=== PATIENT | male | born 1985 | race Caucasian/White ===

== ENCOUNTER 2020-11-01 12:18 | Emergency (ER) | payer OTHER ==
[2020-11-01] MEDS ORDERED: KETOROLAC 15 MG/ML 1 ML VIAL IVP STA (12:46)
[2020-11-01] MEDS ORDERED: SODIUM CHLORIDE 0.9% 1,000 ML IV ONE (12:46)
--- NOTE | 2020-11-01 13:04 | ED ---
Skin/Abscess/FB HPI - General Chief complaint: Skin/Abscess/Foreign Body Stated complaint: lt eye infection Time Seen by Provider: 11/01/20 12:40 Source: patient, RN notes reviewed Mode of arrival: ambulatory Limitations: no limitations - History of Present Illness Initial comments: 35-year-old male presents with from chief complaint left eye infection, swelling. Patient states he believes he was bit by a spider a few days ago states is increased swelling, pain around his eyes states she has no pain behind her pain with ocular movements. No blurred vision. He states it hurts to have left leg is swollen. Patient denies any fevers chills headache no dizziness no neck pain. Denies any night sweats. - Related Data Previous Rx's Medication Instructions Recorded Amoxicillin/Potassium Clav 1 tab PO Q12HR #20 tab 11/01/20 [Augmentin 875-125 Tablet] Ibuprofen [Motrin] 600 mg PO Q8HR PRN #20 tab 11/01/20 Allergies Allergy/AdvReac Type Severity Reaction Status Date / Time No Known Allergies Allergy Verified 11/01/20 13:36 Review of Systems ROS Statement: Those systems with pertinent positive or pertinent negative responses have been documented in the HPI. ROS Other: All systems not noted in ROS Statement are negative. Past Medical History Past Medical History: No Reported History Additional Past Medical History / Comment(s): hep c History of Any Multi-Drug Resistant Organisms: MRSA Date of last positivie culture/infection: 2011 MDRO Source:: pt reports has had MRSA "in a couple spots" Past Surgical History: Back Surgery Past Psychological History: No Psychological Hx Reported Smoking Status: Current every day smoker Past Alcohol Use History: None Reported Past Drug Use History: None Reported General Exam Limitations: no limitations General appearance: alert, in no apparent distress Head exam: Present: atraumatic, normocephalic, normal inspection Eye exam: Present: PERRL, EOMI, periorbital swelling (Moderate left with pustule noted in the upper eyebrow), periorbital tenderness, other (No erythema the left side, no pain with ocular movement. No entrapment.). Absent: normal appearance, scleral icterus, conjunctival injection ENT exam: Present: normal exam, normal oropharynx, mucous membranes moist Neck exam: Present: normal inspection, full ROM. Absent: tenderness, lymphadenopathy Respiratory exam: Present: normal lung sounds bilaterally. Absent: respiratory distress, wheezes, rales, rhonchi, stridor Cardiovascular Exam: Present: regular rate, normal rhythm, normal heart sounds. Absent: systolic murmur, diastolic murmur, rubs, gallop, clicks GI/Abdominal exam: Present: normal bowel sounds Course Vital Signs 11/01/20 12:30 Temperature 98.2 F Pulse Rate 54 L Respiratory 16 Rate Blood Pressure 154/96 O2 Sat by Pulse 100 Oximetry Medical Decision Making - Medical Decision Making CT shows evidence of preseptal cellulitis. Patient has no drainable abscess. Patient was given dorsi and Braaksma discharged and oral antibiotics with follow-up in 24 hours return parameters were discussed. - Lab Data Result diagrams: 11/01/20 12:54 11/01/20 12:54 Lab Results 11/01/20 11/01/20 11/01/20 Range/Units 12:54 12:54 12:54 WBC 7.3 (3.8-10.6) k/uL RBC 4.52 (4.30-5.90) m/uL Hgb 13.7 (13.0-17.5) gm/dL Hct 42.2 (39.0-53.0) % MCV 93.4 (80.0-100.0) fL MCH 30.4 (25.0-35.0) pg MCHC 32.5 (31.0-37.0) g/dL RDW 13.7 (11.5-15.5) % Plt Count 179 (150-450) k/uL MPV 7.0 Neutrophils % (Manual) 62 % Lymphocytes % (Manual) 21 % Monocytes % (Manual) 16 % Basophils % (Manual) 1 % Neutrophils # (Manual) 4.53 (1.3-7.7) k/uL Lymphocytes # (Manual) 1.53 (1.0-4.8) k/uL Monocytes # (Manual) 1.17 H (0-1.0) k/uL Basophils # (Manual) 0.07 (0-0.2) k/uL Nucleated RBCs 0 (0-0) /100 WBC Manual Slide Review Performed RBC Morphology Normal Sodium 136 L (137-145) mmol/L Potassium 4.4 (3.5-5.1) mmol/L Chloride 100 (98-107) mmol/L Carbon Dioxide 32 H (22-30) mmol/L Anion Gap 4 mmol/L BUN 12 (9-20) mg/dL Creatinine 0.53 L (0.66-1.25) mg/dL Est GFR (CKD-EPI)AfAm >90 (>60 ml/min/1.73 sqM) Est GFR (CKD-EPI)NonAf >90 (>60 ml/min/1.73 sqM) Glucose 115 H (74-99) mg/dL Plasma Lactic Acid Sim 1.2 (0.7-2.0) mmol/L Calcium 8.5 (8.4-10.2) mg/dL Total Bilirubin 0.5 (0.2-1.3) mg/dL AST 166 H (17-59) U/L ALT 252 H (4-49) U/L Alkaline Phosphatase 105 (38-126) U/L Total Protein 7.3 (6.3-8.2) g/dL Albumin 3.9 (3.5-5.0) g/dL Disposition Clinical Impression: Preseptal cellulitis Disposition: HOME SELF-CARE Condition: Stable Instructions (If sedation given, give patient instructions): Periorbital Ce llulitis in Adults (ED) Additional Instructions: Please return to the Emergency Department if symptoms worsen or any other concerns. Prescriptions: Amoxicillin/Potassium Clav [Augmentin 875-125 Tablet] 1 tab PO Q12HR #20 tab Ibuprofen [Motrin] 600 mg PO Q8HR PRN #20 tab PRN Reason: Pain Is patient prescribed a controlled substance at d/c from ED?: No Referrals: Christiano Alfonso MD [Primary Care Provider] - 1-2 days Time of Disposition: 15:34
[2020-11-01 13:44] LABS: HCT 42.2 % (39.0-53.0); HGB 13.7 gm/dL (13.0-17.5); MCH 30.4 pg (25.0-35.0); MCHC 32.5 g/dL (31.0-37.0); MCV 93.4 fL (80.0-100.0); Platelet Count 179 k/uL (150-450); RBC 4.52 m/uL (4.30-5.90); RDW 13.7 % (11.5-15.5); WBC 7.3 k/uL (3.8-10.6)
[2020-11-01 13:45] LABS: ALT 252 U/L (4-49); African American GFR (CKD) >90 (>60 ml/min/1.73 sqM); Albumin 3.9 g/dL (3.5-5.0); Anion Gap 4 mmol/L; Blood Urea Nitrogen 12 mg/dL (9-20); Calcium 8.5 mg/dL (8.4-10.2); Carbon Dioxide 32 mmol/L (22-30); Chloride 100 mmol/L (98-107); Glucose 115 mg/dL (74-99); Non-African American GFR(CKD) >90 (>60 ml/min/1.73 sqM); Sodium 136 mmol/L (137-145); Total Bilirubin 0.5 mg/dL (0.2-1.3); Total Protein 7.3 g/dL (6.3-8.2)
[2020-11-01 13:53] LABS: AST 166 U/L (17-59); Alkaline Phosphatase 105 U/L (38-126); Potassium 4.4 mmol/L (3.5-5.1)
[2020-11-01 14:52] LABS: Basophils # (M) 0.07 k/uL (0-0.2); Lymphocytes # (M) 1.53 k/uL (1.0-4.8); Monocytes # (M) 1.17 k/uL (0-1.0); Neutrophils # (M) 4.53 k/uL (1.3-7.7); Neutrophils % (M) 62 %; Nucleated Red Blood Cells 0 /100 WBC (0-0); Total Cells Counted 100
--- NOTE | 2020-11-01 14:57 | CT ---
EXAMINATION TYPE: CT orbits w con DATE OF EXAM: 11/01/2020 COMPARISON: None HISTORY: Left eye infection upper lid CT DLP: 204.5 mGycm Automated exposure control for dose reduction was used. Contrast-enhanced CT of the orbits was perfor med. Bone and soft tissue window settings are submitted in the axial and coronal planes. CONTRAST: Performed with IV Contrast, patient injected with 100 mL of Isovue 300. FINDINGS: There is extensive left-sided preseptal cellulitis with edema surrounding the left orbit and left por tion of the nasion. Edema extends into the left for head. There is evidence of extensive left-sided s inusitis with complete opacification of the left maxillary sinus with obstruction of the left ostiome atal unit. Chronic left-sided ethmoiditis also noted. There is no evidence for abscess. The globes ar e symmetric. There is no evidence for intra or extraconal mass or lesion. No intraconal abscess seen. Optic nerves and extraocular musculature all appear to be within normal limits. IMPRESSION: MODERATELY SEVERE LEFT-SIDED PRESEPTAL CELLULITIS LIKELY SECONDARY TO SEVERE LEFT MAXILLARY SINUSITIS AND TO A LESSER EXTENT LEFT ETHMOIDAL CHRONIC SINUSITIS. NO EVIDENCE FOR DRAINABLE ABSCESS.
[2020-11-01] MEDS ORDERED: ACET/COD 300 MG/30 MG STARTER PACK 6 TAB BTL PO STA (15:34)
[2020-11-01 16:50] VITALS: BP 115/72; PULSE 60; RESP 18; TEMP 96.7
== END 2020-11-01 16:49 | disposition home or self-care (01) ==
LOC: EC 12:18
DX: L03.213 Periorbital cellulitis (principal); F17.200 Nicotine dependence, unspecified, uncomplicated
CPT/HCPCS: 36415; 80053; 83605; 85025; 70481; 99284; 96365; 96375; 96361; J0696; J1885; Q9967

== ENCOUNTER 2020-11-20 | Emergency (ER) | payer OTHER | END 2020-11-20 18:38 | disposition home or self-care (01) ==

== ENCOUNTER 2020-11-21 23:28 | Emergency (ER) | payer OTHER ==
[2020-11-22] MEDS ORDERED: cefTRIAXone IN SWFI 1,000 MG/10 ML SYRINGE IVP STA (00:08)
[2020-11-22] MEDS ORDERED: SODIUM CHLORIDE 0.9% 1,000 ML IV STA (00:08)
[2020-11-22] MEDS ORDERED: MORPHINE SULFATE 4 MG/ML SYRINGE IVP STA (00:08)
[2020-11-22] MEDS ORDERED: VANCOMYCIN IV PER PHARMACY 1 EACH MISC MISCELLANE PRN (00:09)
[2020-11-22] MEDS ORDERED: VANCOMYCIN 1,250 MG in SODIUM CHLORIDE 0.9% 250 ML IVPB ONE (00:30)
--- NOTE | 2020-11-22 00:54 | ED ---
Skin/Abscess/FB HPI - General Source: patient Mode of arrival: ambulatory Limitations: no limitations <Mary Ann Mcguire - Last Filed: 11/22/20 02:42> <Eric Lucero - Last Filed: 11/22/20 06:12> - General Chief complaint: Skin/Abscess/Foreign Body Stated complaint: Recheck Time Seen by Provider: 11/21/20 23:48 - History of Present Illness Initial comments: Patient is a 35-year-old male presenting to the emergency Department with complaints of a worsening infection on his face. Patient states he was seen 3 w eeks ago for cellulitis of his left eye. He was started on antibiotics in the infection seemed to go away. He states about a week ago infection started coming back and worsening and then spread to the left side of his nose. Patient was here yesterday, was started on Augmentin, he didn't take the first dose until this evening. He states he woke up and the swelling and redness is worse, he is having increase in pain as well, so they came back in for reevaluation. Yesterday patient refuses an I&D of the area. Eyes any fevers or nausea or vomiting. He does admit to being an IV drug abuser, last used heroin today. He denies any chest pain or shortness of breath, no dizziness. He has no further complaints. Upon arrival to the ER, his vitals are within normal limits. (Mary Ann Mcguire) - Related Data Previous Rx's Medication Instructions Recorded Amoxicillin/Potassium Clav 1 tab PO Q12HR #20 tab 11/01/20 [Augmentin 875-125 Tablet] Ibuprofen [Motrin] 600 mg PO Q8HR PRN #20 tab 11/01/20 Amoxicillin/Potassium Clav 1 tab PO Q12HR #20 tab 11/20/20 [Augmentin 875-125 Tablet] Allergies Allergy/AdvReac Type Severity Reaction Status Date / Time No Known Allergies Allergy Verified 11/21/20 23:36 Review of Systems ROS Other: All systems not noted in ROS Statement are negative. <Mary Ann Mcguire - Last Filed: 11/22/20 02:42> ROS Other: All systems not noted in ROS Statement are negative. <Eric Lucero - Last Filed: 11/22/20 06:12> ROS Statement: Those systems with pertinent positive or pertinent negative responses have been documented in the HPI. Past Medical History Past Medical History: No Reported History Additional Past Medical History / Comment(s): hep c History of Any Multi-Drug Resistant Organisms: MRSA Date of last positivie culture/infection: 2011 MDRO Source:: pt reports has had MRSA "in a couple spots" Past Surgical History: Back Surgery Past Psychological History: No Psychological Hx Reported Smoking Status: Current every day smoker Past Alcohol Use History: None Reported Past Drug Use History: Marijuana <Mary Ann Mcguire - Last Filed: 11/22/20 02:42> General Exam Limitations: no limitations <Mary Ann Mcguire - Last Filed: 11/22/20 02:42> - General Exam Comments Initial Comments: GENERAL: Patient is nontoxic and in mild distress. HEAD: Atraumatic, normocephalic. EYES: Pupils equal round and reactive to light, extraocular movements intact, sclera anicteric, conjunctiva are normal.. Patient has erythema, swelling surrounding his left eye which does extend down into the left side of his nose with a large abscess on the left side of his nose, measuring approximately 2 cm in diameter. He has extensive swelling to the area. He is able to see out of his left eye. ENT: TMs normal, nares patent, oropharynx clear without exudates. Moist mucous membranes. NECK: Normal range of motion, supple without lymphadenopathy or JVD. LUNGS: Unlabored respirations. Breath sounds clear to auscultation bilaterally and equal. No wheezes rales or rhonchi. HEART: Regular rate and rhythm without murmurs, rubs or gallops. ABDOMEN: Soft, nontender, normoactive bowel sounds. No guarding, no rebound. No masses appreciated. : Deferred MUSCULOSKELETAL: Normal extremities with adequate strength and normal range of motion, no pitting or edema. No clubbing or cyanosis. NEUROLOGICAL: Patient is alert and oriented x 3. Normal speech, normal gait. PSYCH: Normal mood, normal affect. SKIN: Warm, Dry, normal turgor, no rashes or lesions noted, other than above. (Mary Ann Mcguire) Course Vital Signs 11/21/20 11/22/20 11/22/20 23:33 01:57 03:23 Temperature 98.3 F 98.2 F Pulse Rate 67 66 Respiratory 20 18 Rate Blood Pressure 132/62 132/76 O2 Sat by Pulse 98 96 Oximetry 11/22/20 11/22/20 04:35 05:23 Temperature Pulse Rate 52 L 55 L Respiratory 18 18 Rate Blood Pressure 115/78 125/87 O2 Sat by Pulse 98 100 Oximetry Medical Decision Making - Lab Data Result diagrams: 11/22/20 00:33 11/22/20 00:33 <Mary Ann Mcguire - Last Filed: 11/22/20 02:42> - Lab Data Result diagrams: 11/22/20 00:33 11/22/20 00:33 <Eric Lucero - Last Filed: 11/22/20 06:12> - Medical Decision Making Patient is a 35-year-old male here with a abscess of the left side of the nostril as well as extensive cellulitis on the left side of the face extending to the left eye. Been getting worse over the past week, he was here yesterday, started on Augmentin but has only taken one dose. Woke up this morning with worsening swelling, redness and pain. Patient refused I&D yesterday and again today. His vitals are stable upon arrival, no fevers or nausea or vomiting. CT of the orbits show left side periorbital soft tissue swelling consistent with cellulitis, there is a new low density mass left-sided and nose consistent with an abscess. Labs show a normal white count, lactic acid is normal. CRP is elevated, ESR is pending. Patient be admitted for periorbital cellulitis, given dose of Rocephin, vancomycin, added Unasyn. Blood cultures pending. Patient accepted by Dr. Deluca. Case discussed with Dr. Lucero. (Mary Ann Mcguire) This patient is 35-year-old man with worsening left facial cellulitis and abscess. The patient was seen by the physician school bus driver/teacher assistant who had called the internal medicine service to see about possible admission. When the internal medicine service saw the patient and there were concerns about whether this case was appropriate here and I further discussed with ENT. After ENT had consulted, also felt that the patient would be best served where there is a facial plastics service given the extensive cellulitis and the abscess. Case is discussed with Dr. Elam at [facility] and they will accept transfer for higher level of service. (Eric Lucero) - Lab Data Lab Results 11/22/20 11/22/20 11/22/20 Range/Units 00:33 00:33 00:33 WBC 7.0 (3.8-10.6) k/uL RBC 4.00 L (4.30-5.90) m/uL Hgb 12.4 L (13.0-17.5) gm/dL Hct 36.9 L (39.0-53.0) % MCV 92.1 (80.0-100.0) fL MCH 30.9 (25.0-35.0) pg MCHC 33.6 (31.0-37.0) g/dL RDW 13.6 (11.5-15.5) % Plt Count 187 (150-450) k/uL MPV 6.9 Neutrophils % (Manual) 50 % Band Neuts % (Manual) 2 % Lymphocytes % (Manual) 32 % Monocytes % (Manual) 14 % Eosinophils % (Manual) 2 % Neutrophils # (Manual) 3.60 (1.3-7.7) k/uL Lymphocytes # (Manual) 2.24 (1.0-4.8) k/uL Monocytes # (Manual) 0.98 (0-1.0) k/uL Eosinophils # (Manual) 0.14 (0-0.7) k/uL Nucleated RBCs 0 (0-0) /100 WBC Manual Slide Review Performed Anisocytosis (manual) Present ESR 18 H (0-15) mm/hr Sodium 134 L (137-145) mmol/L Potassium 4.1 (3.5-5.1) mmol/L Chloride 97 L (98-107) mmol/L Carbon Dioxide 31 H (22-30) mmol/L Anion Gap 6 mmol/L BUN 15 (9-20) mg/dL Creatinine 0.63 L (0.66-1.25) mg/dL Est GFR (CKD-EPI)AfAm >90 (>60 ml/min/1.73 sqM) Est GFR (CKD-EPI)NonAf >90 (>60 ml/min/1.73 sqM) Glucose 127 H (74-99) mg/dL Plasma Lactic Acid Sim 0.8 (0.7-2.0) mmol/L Calcium 8.7 (8.4-10.2) mg/dL Total Bilirubin 0.7 (0.2-1.3) mg/dL AST 305 H (17-59) U/L ALT 468 H (4-49) U/L Alkaline Phosphatase 137 H (38-126) U/L C-Reactive Protein 2.2 H (<1.0) mg/dL Total Protein 7.1 (6.3-8.2) g/dL Albumin 3.8 (3.5-5.0) g/dL Disposition Decision Date: 11/22/20 Decision Time: 01:42 <Mary Ann Mcguire - Last Filed: 11/22/20 02:42> - Out of Hospital Transfer - Req. Specs Out of Hospital Transfer - Requested Specifics: Other Emergency Center <Eric Lucero - Last Filed: 11/22/20 06:12> Clinical Impression: Periorbital cellulitis of left eye, Abscess of nose Disposition: OTHER INSTITUTION NOT DEFINED Condition: Stable
[2020-11-22 01:04] LABS: ALT 468 U/L (4-49); AST 305 U/L (17-59); African American GFR (CKD) >90 (>60 ml/min/1.73 sqM); Albumin 3.8 g/dL (3.5-5.0); Alkaline Phosphatase 137 U/L (38-126); Anion Gap 6 mmol/L; Blood Urea Nitrogen 15 mg/dL (9-20); C Reactive Protein 2.2 mg/dL (<1.0); Calcium 8.7 mg/dL (8.4-10.2); Carbon Dioxide 31 mmol/L (22-30); Chloride 97 mmol/L (98-107); Glucose 127 mg/dL (74-99); Non-African American GFR(CKD) >90 (>60 ml/min/1.73 sqM); Potassium 4.1 mmol/L (3.5-5.1); Sodium 134 mmol/L (137-145); Total Bilirubin 0.7 mg/dL (0.2-1.3); Total Protein 7.1 g/dL (6.3-8.2)
--- NOTE | 2020-11-22 01:06 | CT ---
EXAMINATION TYPE: CT orbits w con DATE OF EXAM: 11/22/2020 COMPARISON: 11/01/2020 HISTORY: PAIN CT DLP: 368.7 mGycm Automated exposure control for dose reduction was used. CONTRAST: Performed with IV Contrast, patient injected with 100 mL of Isovue 300. Images obtained from the bottom of the maxilla to the top of the frontal sinuses with IV contrast. There is soft tissue swelling anterior to the left maxilla. There is 2.4 x 1.5 cm low-density mass on the left side of the nasal bone consistent with an abscess. This appears new compared to old exam. T here is preseptal periorbital soft tissue swelling on the left side. There is no evidence of retro-or bital mass. I see no focal bone destruction. Orbital margins are intact. There is fairly normal aerat ion of the maxillary sinuses. Zygomatic arches appear normal. Maxilla is intact. I see no bony destru ctive process. IMPRESSION: Left side periorbital soft tissue swelling consistent with cellulitis similar to last exam. There is new low-density mass on the left side of the nose consistent with an abscess.
[2020-11-22 01:07] LABS: HCT 36.9 % (39.0-53.0); HGB 12.4 gm/dL (13.0-17.5); MCH 30.9 pg (25.0-35.0); MCHC 33.6 g/dL (31.0-37.0); MCV 92.1 fL (80.0-100.0); Mean Platelet Volume 6.9; Platelet Count 187 k/uL (150-450); RDW 13.6 % (11.5-15.5)
[2020-11-22] MEDS ORDERED: AMPICILLIN-SULBACTAM 3 GM in SODIUM CHLORIDE 0.9% 100 ML IVPB STA (01:39)
[2020-11-22] MEDS ORDERED: IBUPROFEN 400 MG TAB PO PRN (01:40)
[2020-11-22] MEDS ORDERED: ACETAMINOPHEN TAB 325 MG TAB PO PRN (01:40)
[2020-11-22] MEDS ORDERED: KETOROLAC 15 MG/ML 1 ML VIAL IVP PRN (01:40)
[2020-11-22] MEDS ORDERED: MORPHINE SULFATE 4 MG/ML SYRINGE IV PRN (01:40)
[2020-11-22] MEDS ORDERED: NALOXONE 0.4 MG/ML 1 ML VIAL IV PRN (01:40)
[2020-11-22 01:50] LABS: Anisocytosis (M) Present; Band Neutrophils % 2 %; Eosinophils # (M) 0.14 k/uL (0-0.7); Lymphocytes # (M) 2.24 k/uL (1.0-4.8); Monocytes # (M) 0.98 k/uL (0-1.0); Neutrophils % (M) 50 %; Nucleated Red Blood Cells 0 /100 WBC (0-0); Total Cells Counted 100
[2020-11-22 02:00] VITALS: RESP 18
[2020-11-22 02:46] LABS: Erythrocyte Sedimentation Rate 18 mm/hr (0-15)
[2020-11-22 03:21] LABS: Appearance,Urine Clear (Clear); Bilirubin,Urine Negative (Negative); Blood,Urine Negative (Negative); Color,Urine Yellow; Glucose,Urine (UA) Negative (Negative); Ketones,Urine Negative (Negative); Leukocyte Esterase,Urine Negative (Negative); Nitrite,Urine Negative (Negative); Protein,Urine Negative (Negative); Specific Gravity,Urine 1.037 (1.001-1.035); Urobilinogen,Urine >12.0 mg/dL (<2.0)
[2020-11-22 03:23] VITALS: TEMP 98.2
[2020-11-22 03:44] LABS: Amphetamine Screen,Urine Detected (NotDetected); Benzodiazepines Screen,Urine Not Detected (NotDetected); Cocaine Screen,Urine Detected (NotDetected); Methadone Screen, Urine Not Detected (NotDetected); Opiate Screen,Urine Detected (NotDetected); Phencyclidine Screen,Urine Not Detected (NotDetected); Tricyclic Antidepressant,Urine Not Detected (NotDetected); Urn Cannabinoid Scrn Detected (NotDetected)
[2020-11-22 03:45] LABS: Barbiturate Screen,Urine Not Detected (NotDetected); Oxycodone Screen, Urine Not Detected (NotDetected)
[2020-11-22] MEDS ORDERED: SODIUM CHLORIDE 0.9% 1,000 ML IV SCH (03:45)
--- NOTE | 2020-11-22 03:47 | P.HPIM ---
History of Present Illness H&P Date: 11/22/20 Patient is a 35-year-old male with a PMH of polysubstance abuse who presented to the emergency room with complaints of left facial pain and swelling. The patient initially presented on 11/01 with left periorbital swelling. He was discharged home on Augmentin, though the patient presented to the emergency room again on 11/20 with left facial pain and swelling, reporting that he stopped taking his antibiotics early since his infection was improving. The patient was diagnosed with a left nare abscess and was advised to undergo an incision and drainage which the patient previously refused. He was again discharged on oral Augmentin. The patient however now returns back to the emergency room, stating that he did not take his medications as prescribed and that his pain had gradually been worsening. At the time of evaluation, patient had received morphine and was lethargic and unable to provide any meaningful history. History thereby obtained from the emergency room physicians, patient's RN, and emergency room notes. The patient had denied any fevers but did report using heroin the day prior to presentation. The patient further denied blurred vision. In the emergency room, a CT orbits with contrast revealed a left-sided periorbital soft tissue swelling consistent with cellulitis along with a new low-density mass on the left side of the nose consistent with an abscess. Laboratory evaluation was remarkable for lactic acid 0.8, AST 305, ALT 468, alk phos 137, and CRP 2.2. Review of systems: Unable to obtain due to mental status Physical examination: General: Somewhat ill-appearing male, no distress, appears at stated age, normal weight Derm: Significant left nasal bridge, facial, and periorbital swelling, warm, dry Head: atraumatic, normocephalic, symmetric Eyes: EOMI, unable to fully assess the left eye due to significant periorbital swelling though the extraocular movements are intact ENT: Nose and ears atraumatic, no thrush, no pharyngeal erythema Neck: No thyromegaly, no cervical lymphadenopathy, trachea midline, supple Mouth: no lip lesion, mucus membranes dry Cardiovascular: S1S2 reg, no murmur, positive posterior tibial pulse bilateral, no edema, capillary refill less than 2 seconds Lungs: CTA bilateral, no rhonchi, no rales , no accessory muscle use Abdominal: soft, nontender to palpation, no guarding, no appreciable organomegaly, normal bowel sounds Ext: no gross muscle atrophy, muscle strength 5 out of 5 in all 4 extremities grossly, no contractures, Neuro: CN II-XI grossly intact, no gross focal deficits noted Psych: Lethargic, only answering some questions appropriately Assessment/plan Left facial and periorbital cellulitis with underlying abscess -ENT consult -Continue with the vancomycin and Unasyn -Follow up blood cultures Abnormal LFTs, likely secondary to ongoing infection -Monitor for Polysubstance abuse -Obtain urine toxicology screen -Monitor for signs of withdrawal DVT prophylaxis -Heparin subq The patient is admitted with an anticipated greater than 2 midnight stay for evaluation of L facial cellulitis CODE STATUS: Full Code Discussed with: Patient Anticipated discharge date: 2-[address]: Home A total of 40 minutes was spent on the care of this complex patient more than 50% of the time was spent in counseling and care coordination. Past Medical History Past Medical History: No Reported History Additional Past Medical History / Comment(s): hep c History of Any Multi-Drug Resistant Organisms: MRSA Date of last positivie culture/infection: 2011 MDRO Source:: pt reports has had MRSA "in a couple spots" Past Surgical History: Back Surgery Past Psychological History: No Psychological Hx Reported Smoking Status: Current every day smoker Past Alcohol Use History: None Reported Past Drug Use History: Marijuana Medications and Allergies Home Medications Medication Instructions Recorded Confirmed Type Amoxicillin/Potassium Clav 1 tab PO Q12HR #20 tab 11/01/20 Rx [Augmentin 875-125 Tablet] Ibuprofen [Motrin] 600 mg PO Q8HR PRN #20 tab 11/01/20 Rx Amoxicillin/Potassium Clav 1 tab PO Q12HR #20 tab 11/20/20 Rx [Augmentin 875-125 Tablet] Allergies Allergy/AdvReac Type Severity Reaction Status Date / Time No Known Allergies Allergy Verified 11/21/20 23:36 Physical Exam Vitals: Vital Signs Temp Pulse Resp BP Pulse Ox 11/22/20 03:23 98.2 F 11/22/20 01:57 66 18 132/76 96 11/21/20 23:33 98.3 F 67 20 132/62 98 Intake and Output 11/21/20 11/21/20 11/22/20 14:59 22:59 06:59 Other: Weight 72.575 kg Results CBC & Chem 7: 11/22/20 00:33 11/22/20 00:33 Labs: Abnormal Lab Results - Last 24 Hours (Table) 11/22/20 11/22/20 11/22/20 Range/Units 00:33 00:33 03:10 RBC 4.00 L (4.30-5.90) m/uL Hgb 12.4 L (13.0-17.5) gm/dL Hct 36.9 L (39.0-53.0) % ESR 18 H (0-15) mm/hr Sodium 134 L (137-145) mmol/L Chloride 97 L (98-107) mmol/L Carbon Dioxide 31 H (22-30) mmol/L Creatinine 0.63 L (0.66-1.25) mg/dL Glucose 127 H (74-99) mg/dL AST 305 H (17-59) U/L ALT 468 H (4-49) U/L Alkaline Phosphatase 137 H (38-126) U/L C-Reactive Protein 2.2 H (<1.0) mg/dL Ur Specific [place] 1.037 H (1.001-1.035)
[2020-11-22] MEDS ORDERED: THIAMINE 100 MG/ML 2 ML VIAL IM STA (03:49)
[2020-11-22] MEDS ORDERED: LORazepam 2 MG/ML INJ IV PRN ×3 (03:49)
[2020-11-22 05:23] VITALS: BP 125/87; PULSE 55
[2020-11-22 06:16] LABS: HCT 35.9 % (39.0-53.0); HGB 12.1 gm/dL (13.0-17.5); MCH 31.1 pg (25.0-35.0); MCHC 33.7 g/dL (31.0-37.0); MCV 92.2 fL (80.0-100.0); Mean Platelet Volume 7.1; Platelet Count 162 k/uL (150-450); RDW 13.2 % (11.5-15.5); WBC 6.1 k/uL (3.8-10.6)
[2020-11-22] MEDS ORDERED: HEPARIN SODIUM,PORCINE/PF 5,000 UNIT/0.5 ML SYRINGE SQ SCH (08:00)
[2020-11-22] MEDS ORDERED: VANCOMYCIN 1,250 MG in SODIUM CHLORIDE 0.9% 250 ML IVPB SCH (08:00)
[2020-11-22] MEDS ORDERED: AMPICILLIN-SULBACTAM 3 GM in SODIUM CHLORIDE 0.9% 100 ML IVPB SCH (09:00)
[2020-11-22 09:45] LABS: African American GFR (CKD) 149.9 (60.0-200.0); Albumin 3.6 g/dL (3.80-4.90); Albumin/Globulin Ratio 1.24 (1.60-3.17); Anion Gap 5.5 mmol/L (4.00-12.00); Carbon Dioxide 29.5 mmol/L (21.6-31.8); Globulin 2.9 g/dL (1.6-3.3); Magnesium 1.8 mg/dL (1.5-2.4); Non-African American GFR(CKD) 129.3 (60.0-200.0); Potassium 3.7 mmol/L (3.5-5.5); Total Bilirubin 0.7 mg/dL (0.2-1.2); Total Protein 6.5 g/dL (6.2-8.2)
[2020-11-22] MEDS ORDERED: THIAMINE 100 MG TAB PO SCH (17:30)
== END 2020-11-22 06:54 | disposition other institution (70) ==
LOC: EC 23:28 → 5NMEDONC 11-22 02:11 → UNDOADMIN 11-22 02:11 → EC 11-22 06:54
DX: L03.213 Periorbital cellulitis (principal); J34.0 Abscess, furuncle and carbuncle of nose; F17.200 Nicotine dependence, unspecified, uncomplicated
CPT/HCPCS: 36415; 80053; 85652; 83605; 83735; 85025; 85027; 86140; 81003; 87040; 80306; 70481; 99284; 96365; 96375 ×2; 96366 ×2; 96372; J3370; J2060; J2270; J3411; J0696; J0295; Q9967

== ENCOUNTER 2020-12-29 04:34 | Emergency (ER) | payer OTHER ==
[2020-12-29] MEDS ORDERED: VANCOMYCIN IV PER PHARMACY 1 EACH MISC MISCELLANE PRN (05:21)
[2020-12-29] MEDS ORDERED: VANCOMYCIN 1,250 MG in SODIUM CHLORIDE 0.9% 250 ML IVPB ONE (06:00)
[2020-12-29 06:04] LABS: HCT 38.6 % (39.0-53.0); HGB 12.8 gm/dL (13.0-17.5); MCHC 33.3 g/dL (31.0-37.0); MCV 96.1 fL (80.0-100.0); Mean Platelet Volume 6.5; Platelet Count 211 k/uL (150-450); RBC 4.02 m/uL (4.30-5.90); RDW 15.1 % (11.5-15.5); WBC 7.6 k/uL (3.8-10.6)
[2020-12-29 06:14] LABS: African American GFR (CKD) >90 (>60 ml/min/1.73 sqM); Anion Gap 5 mmol/L; Blood Urea Nitrogen 14 mg/dL (9-20); Calcium 8.9 mg/dL (8.4-10.2); Carbon Dioxide 29 mmol/L (22-30); Chloride 100 mmol/L (98-107); Glucose 110 mg/dL (74-99); Non-African American GFR(CKD) >90 (>60 ml/min/1.73 sqM); Potassium 3.9 mmol/L (3.5-5.1); Sodium 134 mmol/L (137-145)
[2020-12-29 06:26] LABS: Band Neutrophils % 5 %; Eosinophils # (M) 0.08 k/uL (0-0.7); Monocytes # (M) 1.14 k/uL (0-1.0); Neutrophils % (M) 54 %; Nucleated Red Blood Cells 0 /100 WBC (0-0); Total Cells Counted 100
--- NOTE | 2020-12-29 07:03 | ED ---
Skin/Abscess/FB HPI - General Chief complaint: Skin/Abscess/Foreign Body Stated complaint: MRSA Time Seen by Provider: 12/29/20 05:06 Source: patient Mode of arrival: ambulatory - History of Present Illness Initial comments: This patient is 35-year-old man with history of previous abscesses who presents with complaint that he believes he is developing some new abscesses. The p atient states over the past 3-4 days she has noted redness and swelling to the left axilla, the posterior scalp, and bilateral legs. He did have previous MRSA infection treated at [facility]. Patient is not having any systemic symptoms, no fever or chills, chest pain, palpitations, dyspnea or diaphoresis. MD complaint: abscess/boil -: days(s) Tetanus Up to Date: yes Location: generalized Quality: constant Consistency: constant Improves with: none Worsens with: none Associated symptoms: denies other symptoms - Related Data Previous Rx's Medication Instructions Recorded Amoxicillin/Potassium Clav 1 tab PO Q12HR #20 tab 11/01/20 [Augmentin 875-125 Tablet] Ibuprofen [Motrin] 600 mg PO Q8HR PRN #20 tab 11/01/20 Amoxicillin/Potassium Clav 1 tab PO Q12HR #20 tab 11/20/20 [Augmentin 875-125 Tablet] Chlorhexidine Gluconate [Hibiclens] 1 applic TOPICAL DAILY #120 ml 12/29/20 Sulfamethox-Tmp 800-160Mg [Bactrim 2 each PO Q12HR #28 tab 12/29/20 Ds] Allergies Allergy/AdvReac Type Severity Reaction Status Date / Time No Known Allergies Allergy Verified 12/29/20 04:45 Review of Systems ROS Statement: Those systems with pertinent positive or pertinent negative responses have been documented in the HPI. ROS Other: All systems not noted in ROS Statement are negative. Constitutional: Denies: fever, chills, weakness, night sweats Respiratory: Denies: cough, dyspnea Cardiovascular: Denies: chest pain, palpitations, syncope Gastrointestinal: Denies: abdominal pain, vomiting, diarrhea Genitourinary: Denies: dysuria Skin: Reports: as per HPI, lesions Neurological: Denies: headache, weakness Past Medical History Past Medical History: No Reported History Additional Past Medical History / Comment(s): hep c History of Any Multi-Drug Resistant Organisms: MRSA Date of last positivie culture/infection: 2020 MDRO Source:: pt reports has had MRSA "in a couple spots" Past Surgical History: Back Surgery Past Psychological History: No Psychological Hx Reported Smoking Status: Current every day smoker Past Alcohol Use History: None Reported Past Drug Use History: Marijuana General Exam General appearance: alert, in no apparent distress Head exam: Present: atraumatic, normocephalic Eye exam: Present: normal appearance. Absent: scleral icterus, conjunctival injection ENT exam: Present: normal oropharynx Neck exam: Present: normal inspection Respiratory exam: Present: normal lung sounds bilaterally. Absent: respiratory distress, wheezes, rales, rhonchi, stridor Cardiovascular Exam: Present: regular rate, normal rhythm, normal heart sounds. Absent: systolic murmur, diastolic murmur, rubs, gallop GI/Abdominal exam: Present: soft. Absent: tenderness Extremities exam: Present: normal inspection, normal capillary refill Back exam: Present: normal inspection. Absent: CVA tenderness (R), CVA tenderness (L) Neurological exam: Present: alert Skin exam: Present: warm, dry, normal color, other (Patient has multiple areas of folliculitis, including left axilla, posterior scalp, bilateral legs. No real depth yet to the lesions.) Course Vital Signs 12/29/20 12/29/20 12/29/20 04:41 05:45 06:43 Temperature 98.5 F Pulse Rate 60 51 L 58 L Respiratory 19 20 20 Rate Blood Pressure 130/62 116/61 O2 Sat by Pulse 99 100 99 Oximetry Medical Decision Making - Medical Decision Making Patient is 35-year-old man suspected MRSA folliculitis. He is given antibiotics here and prescription for same. Discussed using warm compresses to bring him to the surface. Discussed not to drain through squeezing. Also given prescription for a body wash and instructions use. Discussed appropriate further care and follow-up as well as return parameters. - Lab Data Result diagrams: 12/29/20 05:23 12/29/20 05:23 Lab Results 12/29/20 12/29/20 Range/Units 05:23 05:23 WBC 7.6 (3.8-10.6) k/uL RBC 4.02 L (4.30-5.90) m/uL Hgb 12.8 L (13.0-17.5) gm/dL Hct 38.6 L (39.0-53.0) % MCV 96.1 (80.0-100.0) fL MCH 32.0 (25.0-35.0) pg MCHC 33.3 (31.0-37.0) g/dL RDW 15.1 (11.5-15.5) % Plt Count 211 (150-450) k/uL MPV 6.5 Neutrophils % (Manual) 54 % Band Neuts % (Manual) 5 % Lymphocytes % (Manual) 25 % Monocytes % (Manual) 15 % Eosinophils % (Manual) 1 % Neutrophils # (Manual) 4.40 (1.3-7.7) k/uL Lymphocytes # (Manual) 1.90 (1.0-4.8) k/uL Monocytes # (Manual) 1.14 H (0-1.0) k/uL Eosinophils # (Manual) 0.08 (0-0.7) k/uL Nucleated RBCs 0 (0-0) /100 WBC Manual Slide Review Performed Sodium 134 L (137-145) mmol/L Potassium 3.9 (3.5-5.1) mmol/L Chloride 100 (98-107) mmol/L Carbon Dioxide 29 (22-30) mmol/L Anion Gap 5 mmol/L BUN 14 (9-20) mg/dL Creatinine 0.61 L (0.66-1.25) mg/dL Est GFR (CKD-EPI)AfAm >90 (>60 ml/min/1.73 sqM) Est GFR (CKD-EPI)NonAf >90 (>60 ml/min/1.73 sqM) Glucose 110 H (74-99) mg/dL Calcium 8.9 (8.4-10.2) mg/dL Disposition Clinical Impression: Folliculitis Disposition: HOME SELF-CARE Condition: Good Instructions (If sedation given, give patient instructions): Folliculitis (ED) Prescriptions: Sulfamethox-Tmp 800-160Mg [Bactrim Ds] 2 each PO Q12HR #28 tab Chlorhexidine Gluconate [Hibiclens] 1 applic TOPICAL DAILY #120 ml Is patient prescribed a controlled substance at d/c from ED?: No Referrals: Christiano Alfonso MD [Primary Care Provider] - 1-2 days
[2020-12-29] MEDS ORDERED: MORPHINE SULFATE 4 MG/ML SYRINGE IVP STA (08:32)
[2020-12-29 08:33] VITALS: BP 113/63; PULSE 55; RESP 18; TEMP 97.6
[2020-12-29] MEDS ORDERED: VANCOMYCIN 1,250 MG in SODIUM CHLORIDE 0.9% 250 ML IVPB SCH (14:00)
== END 2020-12-29 08:41 | disposition home or self-care (01) ==
LOC: EC 04:34
DX: L73.9 Follicular disorder, unspecified (principal); F17.200 Nicotine dependence, unspecified, uncomplicated; F12.90 Cannabis use, unspecified, uncomplicated
CPT/HCPCS: 36415; 80048; 85025; 87040; 99283; J3370; J2270

== ENCOUNTER 2020-12-30 09:52 | Inpatient (IN) | payer OTHER ==
[2020-12-30] MEDS ORDERED: HYDROcodone/APAP 5-325MG 1 EACH TAB PO STA (10:48)
[2020-12-30] MEDS ORDERED: PIPERACILLIN-TAZOBACTAM 3.375 GM in SODIUM CHLORIDE 0.9% 100 ML IVPB STA (10:50)
[2020-12-30] MEDS ORDERED: SODIUM CHLORIDE 0.9% 1,000 ML IV ONE (10:50)
[2020-12-30] MEDS ORDERED: VANCOMYCIN IV PER PHARMACY 1 EACH MISC MISCELLANE PRN (10:51)
[2020-12-30] MEDS ORDERED: VANCOMYCIN 1,250 MG in SODIUM CHLORIDE 0.9% 250 ML IVPB STA (10:58)
--- NOTE | 2020-12-30 10:59 | ED ---
Skin/Abscess/FB HPI - General Chief complaint: Skin/Abscess/Foreign Body Stated complaint: Skin Abscess Source: patient, RN notes reviewed, old records reviewed Mode of arrival: wheelchair Limitations: no limitations - History of Present Illness Initial comments: 35-year-old white male patient, homeless with poor hygiene, presents to the emergency room with worsening abscesses to his face, head, left axilla, buttocks, left abdomen and back. Patient was seen in the emergency room yesterday and put on Bactrim and Hibiclens, states did not get Hibiclens but is taking antibiotics. He states that abcesses are continuing to get worse and more painful to his face, abdomen and back. He denies any fevers, no nausea or vomiting. He does state that he is a half a pack a day smoker. He denies any IV drug use. He states that he was hospitalized for one week a month ago at [facility] for IV medications for similar abscesses to left eye. MD complaint: abscess/boil -: month(s) Location: generalized Severity scale (1-10): 9 Quality: constant Consistency: constant Improves with: none Worsens with: palpation Context: none Treatments Prior to Arrival: antibiotic - Related Data Home Medications Medication Instructions Recorded Confirmed Sulfamethox-Tmp 800-160Mg [Bactrim 2 tab PO Q12HR 12/30/20 12/30/20 Ds] Previous Rx's Medication Instructions Recorded Chlorhexidine Gluconate [Hibiclens] 1 applic TOPICAL DAILY #120 ml 12/29/20 Allergies Allergy/AdvReac Type Severity Reaction Status Date / Time No Known Allergies Allergy Verified 12/30/20 11:13 Review of Systems ROS Statement: Those systems with pertinent positive or pertinent negative responses have been documented in the HPI. ROS Other: All systems not noted in ROS Statement are negative. Past Medical History Past Medical History: No Reported History Additional Past Medical History / Comment(s): hep c History of Any Multi-Drug Resistant Organisms: MRSA Date of last positivie culture/infection: 2020 MDRO Source:: pt reports has had MRSA "in a couple spots" Past Surgical History: Back Surgery Past Psychological History: No Psychological Hx Reported Smoking Status: Current every day smoker Past Alcohol Use History: None Reported Past Drug Use History: Marijuana General Exam Limitations: no limitations General appearance: alert, in no apparent distress Head exam: Present: atraumatic, normocephalic, normal inspection Expanded Head exam: Present: other (Multiple lesions throughout the scalp tender to touch no drainage noted) Eye exam: Present: PERRL, EOMI, periorbital tenderness (Right side). Absent: nystagmus Pupils: Present: normal accommodation ENT exam: Present: normal exam, normal oropharynx, mucous membranes moist Neck exam: Present: full ROM. Absent: tenderness, meningismus Respiratory exam: Present: normal lung sounds bilaterally. Absent: respiratory distress, wheezes, rales, rhonchi, stridor, chest wall tenderness, accessory muscle use, decreased breath sounds, prolonged expiratory Cardiovascular Exam: Present: regular rate, normal rhythm, normal heart sounds. Absent: systolic murmur, diastolic murmur, rubs, gallop, clicks GI/Abdominal exam: Present: soft, normal bowel sounds. Absent: distended, tenderness, guarding, rebound, rigid Back exam: Present: full ROM. Absent: CVA tenderness (R), CVA tenderness (L), muscle spasm, paraspinal tenderness, vertebral tenderness Neurological exam: Present: alert, oriented X3 Psychiatric exam: Present: normal affect, normal mood Skin exam: Present: warm, dry, other (Patient has an abscess with cellulitis inferior right eye; abscess with cellulitis to the left abdomen and right flank; patient to the left nipple; multiple lesions to scalp and buttocks) Course Vital Signs 12/30/20 09:59 Temperature 97.8 F Pulse Rate 81 Respiratory 18 Rate Blood Pressure 116/65 O2 Sat by Pulse 98 Oximetry Medical Decision Making - Medical Decision Making Patient has a history of MRSA, was seen yesterday and put on antibiotics states that it is progressively getting worse and he has increased swelling to his face around his right eye. He has multiple lesions over his body including his scalp, face, left arm pain, left nipple, abdomen and back, and buttocks. He denies any IV drug use. He denies any fevers, nausea, vomiting or pain with eye movement. WBC count 7.1. Case discussed with Dr. Mckeon. He will be admitted to the hospital for IV antibiotics. - Lab Data Result diagrams: 12/30/20 11:20 12/30/20 11:20 Disposition Clinical Impression: Cellulitis and abscess of face, Methicillin resistant Staphylococcus aureus infection, Abscess of back, Abscess Disposition: ADMITTED IP TO THIS HOSP Decision Date: 12/30/20 Decision Time: 12:36
[2020-12-30 12:20] LABS: HCT 42.5 % (39.0-53.0); HGB 14.2 gm/dL (13.0-17.5); MCH 31.8 pg (25.0-35.0); MCHC 33.4 g/dL (31.0-37.0); MCV 95.4 fL (80.0-100.0); Mean Platelet Volume 7.3; Platelet Count 207 k/uL (150-450); RBC 4.45 m/uL (4.30-5.90); RDW 14.4 % (11.5-15.5); WBC 7.1 k/uL (3.8-10.6)
[2020-12-30 12:26] LABS: ALT 372 U/L (4-49); AST 273 U/L (17-59); African American GFR (CKD) >90 (>60 ml/min/1.73 sqM); Albumin 3.7 g/dL (3.5-5.0); Alkaline Phosphatase 151 U/L (38-126); Anion Gap 5 mmol/L; Blood Urea Nitrogen 6 mg/dL (9-20); Calcium 8.8 mg/dL (8.4-10.2); Carbon Dioxide 30 mmol/L (22-30); Chloride 100 mmol/L (98-107); Glucose 116 mg/dL (74-99); Non-African American GFR(CKD) >90 (>60 ml/min/1.73 sqM); Potassium 4.2 mmol/L (3.5-5.1); Sodium 135 mmol/L (137-145); Total Bilirubin 0.5 mg/dL (0.2-1.3); Total Protein 7.2 g/dL (6.3-8.2)
[2020-12-30] MEDS ORDERED: NALOXONE 0.4 MG/ML 1 ML VIAL IV PRN (12:48)
[2020-12-30] MEDS ORDERED: IBUPROFEN 400 MG TAB PO PRN (12:48)
[2020-12-30 13:14] LABS: Basophils # (M) 0.07 k/uL (0-0.2); Eosinophils # (M) 0.14 k/uL (0-0.7); Lymphocytes # (M) 1.56 k/uL (1.0-4.8); Monocytes # (M) 0.92 k/uL (0-1.0); Neutrophils % (M) 62 %; Nucleated Red Blood Cells 0 /100 WBC (0-0); Total Cells Counted 100
[2020-12-30] MEDS: SODIUM CHLORIDE 0.9% 1,000 ML IV SCH (15:52)
[2020-12-30] MEDS ORDERED: LORazepam 2 MG/ML INJ IV PRN (16:24)
[2020-12-30] MEDS ORDERED: MELATONIN 3 MG TABLET PO PRN (16:24)
[2020-12-30] MEDS ORDERED: ONDANSETRON 4 MG/2 ML VIAL IVP PRN (16:24)
--- NOTE | 2020-12-30 16:49 | P.HPIM ---
History of Present Illness H&P Date: 12/30/20 Chief Complaint: multiple abscesses Patient is a 35 yo CM with a hx of Hep C, MRSA, and prior back surgery who presented to the ED with complaints of worsening skin lesions. He was seen in the emergency department on 12/29 on prescribed bactrim and Hibclens. He did take the bactrim but fel that the abscess are getting worse and more painful. He returned to the emergency department. Vital signs were within normal limits and labatory analysis demonstrated evltaed LFT. He was started pn vanco and arrangements were made of admission. Patient seen and examined at bedside. He states that he is having eye pain area, posterior hip pain, and abd pain all where he has lesions. He is unsure when they started maybe a week ago. No chest pain, no shortness of breath . No fever s. No nausea, vomiting, diarrhea. He does admit to intravenous drug use. He last injected heroin approximately 2 days ago. He states he uses almost daily. He does have a history of epidural abscess requiring back surgery about 10 years ago. He is homeless. He also thinks he may have killed a fast-moving [place] spider several days ago but he is unsure if it murmur. He knows lesions on his right eye, left axillary area, right posterior hip, left buttock, and midline abdominal wall. Pertinent positives and negatives as discussed in HPI, a complete review of systems was performed and all other systems are negative. General: Ill-appearing, disheveled, malodorous Derm: Multiple lesions with no areas of fluctuance but hard raised areas with some necrotic centers and yellow purulent discoloration the largest being on his right infraorbital ridge, an additional 1 on his midline abdominal wall, a 2 cm one on his right lower back, a small 0.5 cm one on his left buttock, and 3 les ions in his left axilla. Head: normocephalic, symmetric Eyes: EOMI, no lid lag, anicteric sclera, pupils equal round reactive to light ENT: Nose and ears atraumatic, no thrush, no pharyngeal erythema Neck: No thyromegaly, no cervical lymphadenopathy, trachea midline, supple Mouth: no lip lesion, mucus membranes moist Cardiovascular: S1S2 reg, no murmur, positive posterior tibial pulse bilateral, no edema, capillary refill less than 2 seconds Lungs: clear to ascultation bilateral, no ronchi, no rales, no wheeze, no accessory muscle use Abdominal: soft, nontender to palpation, no guarding, no appreciable organomegaly, normal bowel sounds Ext: no gross muscle atrophy, moving all 4 extremities independently no contractures Neuro: CN II-XI grossly intact, light touch intact all 4 extremities, finger to nose within normal limits, Psych: Alert, oriented, angry easily, withdrawn, does not want to participate in the conversation Multiple abscesses consistent with MRSA versus recluse bites -Continue with vancomycin -Consult infectious disease -Warm compresses to eye -Consider Gen. surgery versus ophthalmology consult in a.m. worsens -Check blood cultures and echocardiogram -Pain control Intravenous drug use -Cessation -Catapres, Zofran, Toradol for withdrawals Tobacco use -Cessation -Nicotine replacement Transaminitis, likely secondary to hepatitis C -Patient has never received treatment -Check liver ultrasound The patient is admitted with an anticipated greater than 2 midnight stay for evaluation of multiple MRSA abscesses failed outpatient treatment. CODE STATUS: Full DVT prophylaxis: SCDs Discussed with: Patient, nursing Anticipated discharge date: 3-[address]: Home A total of 65 minutes was spent on the care of this complex patient more than 5 0% of the time was spent in counseling and care coordination. Past Medical History Additional Past Medical History / Comment(s): hep c, epidural abscess, IV drug use History of Any Multi-Drug Resistant Organisms: MRSA Date of last positivie culture/infection: 2020 MDRO Source:: pt reports has had MRSA "in a couple spots" Past Surgical History: Back Surgery Additional Past Surgical History / Comment(s): epidural abscess drainage Past Psychological History: No Psychological Hx Reported Smoking Status: Current every day smoker Past Alcohol Use History: Occasional Past Drug Use History: Heroin, IV Drug Use, Marijuana - Past Family History mother History Unknown: Yes (patient did not know mother) Father Additional Family Medical History / Comment(s): no heart disease Medications and Allergies Home Medications Medication Instructions Recorded Confirmed Type Chlorhexidine Gluconate [Hibiclens] 1 applic TOPICAL DAILY #120 ml 12/29/20 12/30/20 Rx Sulfamethox-Tmp 800-160Mg [Bactrim 2 tab PO Q12HR 12/30/20 12/30/20 History Ds] Allergies Allergy/AdvReac Type Severity Reaction Status Date / Time No Known Allergies Allergy Verified 12/30/20 11:13 Physical Exam Osteopathic Statement: *. No significant issues noted on an osteopathic structural exam other than those noted in the History and Physical/Consult. Vitals: Vital Signs Temp Pulse Resp BP Pulse Ox 12/30/20 09:59 97.8 F 81 18 116/65 98 Intake and Output 12/30/20 12/30/20 12/30/20 06:59 14:59 22:59 Other: Weight 74.843 kg Results CBC & Chem 7: 12/30/20 11:20 12/30/20 11:20 Labs: Abnormal Lab Results - Last 24 Hours (Table) 12/30/20 Range/Units 11:20 Sodium 135 L (137-145) mmol/L BUN 6 L (9-20) mg/dL Creatinine 0.61 L (0.66-1.25) mg/dL Glucose 116 H (74-99) mg/dL AST 273 H (17-59) U/L ALT 372 H (4-49) U/L Alkaline Phosphatase 151 H (38-126) U/L
[2020-12-30] MEDS: KETOROLAC 15 MG/ML 1 ML VIAL IVP PRN (20:39)
[2020-12-30] MEDS: MORPHINE SULFATE 4 MG/ML SYRINGE IV PRN (20:43)
[2020-12-30] MEDS: VANCOMYCIN 1,250 MG in SODIUM CHLORIDE 0.9% 250 ML IVPB SCH (21:01)
[2020-12-31] MEDS: SODIUM CHLORIDE 0.9% 1,000 ML IV SCH ×3 (03:36→23:25)
[2020-12-31] MEDS: VANCOMYCIN 1,250 MG in SODIUM CHLORIDE 0.9% 250 ML IVPB SCH ×2 (04:20→14:04)
[2020-12-31 06:40] LABS: HCT 47.1 % (39.0-53.0); HGB 15.7 gm/dL (13.0-17.5); MCH 31.8 pg (25.0-35.0); MCHC 33.3 g/dL (31.0-37.0); MCV 95.7 fL (80.0-100.0); Platelet Count 211 k/uL (150-450); RBC 4.93 m/uL (4.30-5.90); RDW 14.3 % (11.5-15.5); WBC 6.1 k/uL (3.8-10.6)
[2020-12-31 06:54] LABS: African American GFR (CKD) >90 (>60 ml/min/1.73 sqM); Anion Gap 7 mmol/L; Blood Urea Nitrogen 8 mg/dL (9-20); Calcium 9.2 mg/dL (8.4-10.2); Carbon Dioxide 26 mmol/L (22-30); Chloride 104 mmol/L (98-107); Glucose 113 mg/dL (74-99); Non-African American GFR(CKD) >90 (>60 ml/min/1.73 sqM); Potassium 4.3 mmol/L (3.5-5.1); Sodium 137 mmol/L (137-145)
[2020-12-31] MEDS: KETOROLAC 15 MG/ML 1 ML VIAL IVP PRN ×2 (07:16→12:55)
[2020-12-31] MEDS: NICOTINE 14MG/24HR PATCH TRANSDERM SCH (07:18)
[2020-12-31] MEDS ORDERED: CHLORHEXIDINE GLUCONATE TOPICAL SCH (09:00)
[2020-12-31] MEDS: MORPHINE SULFATE 4 MG/ML SYRINGE IV PRN ×2 (11:06→21:59)
[2020-12-31] MEDS ORDERED: VANCOMYCIN TROUGH DUE 1 EACH MISC MISCELLANE ONE (12:00)
[2020-12-31] MEDS: cloNIDine HCL 0.1 MG TAB PO PRN (12:55)
--- NOTE | 2020-12-31 13:47 | CT ---
EXAMINATION TYPE: CT orbits wo con DATE OF EXAM: 12/31/2020 COMPARISON: None HISTORY: orbital cellulitis, abscess CT DLP: 326.5 mGycm Automated exposure control for dose reduction was used. FINDINGS: There is a 1.3 x 0.8 cm fluid attenuation nodule at the inferolateral aspect right orbit. The bilateral globes and orbits are within normal limits. Intraconal and extraconal fat is unremarkab le. The bilateral extraocular muscles and optic nerves are unremarkable. The visualized intracranial compartment is within normal limits. Mild mucosal thickening of the bilateral maxillary sinuses. No suspicious osseous abnormality. IMPRESSION: There is a 1.3 x 0.8 cm fluid attenuation nodule at the inferolateral aspect OF THE RIGHT right orbit . Lack of intravenous contrast limits assessment for an abscess.
--- NOTE | 2020-12-31 14:19 | P.CONS ---
History of Present Illness - Reason for Consult Consult date: 12/31/20 - History of Present Illness Patient was gone for CT when I went to see the patient, on the second visit to the patient was in the room however on entering the room the patient started using foul language saying F--- , I have tO EAT by lunch I cannot take this kind of attitude from the patient I will not be able to see the patient , this has been discussed with the admitting physician, if need ID service the patient can be transferred to different facility Past Medical History Past Medical History: No Reported History Additional Past Medical History / Comment(s): hep c, epidural abscess, IV drug use History of Any Multi-Drug Resistant Organisms: MRSA Year Discovered:: 2020 MDRO Source:: pt reports has had MRSA "in a couple spots" Past Surgical History: Back Surgery Additional Past Surgical History / Comment(s): epidural abscess drainage Past Anesthesia/Blood Transfusion Reactions: No Reported Reaction Past Psychological History: No Psychological Hx Reported Smoking Status: Current every day smoker Past Alcohol Use History: Occasional Past Drug Use History: Heroin, IV Drug Use, Marijuana - Past Family History Father Additional Family Medical History / Comment(s): no heart disease mother History Unknown: Yes Medications and Allergies Home Medications Medication Instructions Recorded Confirmed Type Chlorhexidine Gluconate [Hibiclens] 1 applic TOPICAL DAILY #120 ml 12/29/20 12/30/20 Rx Sulfamethox-Tmp 800-160Mg [Bactrim 2 tab PO Q12HR 12/30/20 12/30/20 History Ds] Allergies Allergy/AdvReac Type Severity Reaction Status Date / Time No Known Allergies Allergy Verified 12/30/20 11:13 Physical Exam Vitals: Vital Signs Temp Pulse Pulse Pulse Resp BP BP 12/31/20 12:38 98.3 F 69 18 135/80 12/31/20 05:48 97.5 F L 61 18 158/84 12/30/20 22:39 98.3 F 64 16 136/77 12/30/20 19:30 98.9 F 56 L 20 127/71 Pulse Ox 12/31/20 12:38 97 12/31/20 05:48 100 12/30/20 22:39 100 12/30/20 19:30 100 Intake and Output 12/30/20 12/31/20 12/31/20 22:59 06:59 14:59 Intake Total 550 Output Total 600 1500 400 Balance -600 -950 -400 Intake: Intake, IV Titration 550 Amount Sodium Chloride 0.9% 1, 300 000 ml @ 75 mls/hr IV . [id number] [facility] Rx#:[id number] Vancomycin 1,250 mg In 250 Sodium Chloride 0.9% 250 ml @ 125 mls/hr IVPB Q8H [facility] Rx#:[id number] Output: Urine 600 1500 400 Other: Voiding Method Toilet Urinal Weight 74.843 kg Results CBC & Chem 7: 12/31/20 06:24 12/31/20 06:24 Labs: Abnormal Lab Results - Last 24 Hours (Table) 12/31/20 Range/Units 06:24 BUN 8 L (9-20) mg/dL Creatinine 0.57 L (0.66-1.25) mg/dL Glucose 113 H (74-99) mg/dL Microbiology - Last 24 Hours (Table) 12/30/20 11:20 Blood Culture - Preliminary Blood No Growth after 24 hours 12/30/20 11:20 Blood Culture - Preliminary Blood No Growth after 24 hours
--- NOTE | 2020-12-31 14:56 | P.PN ---
Subjective Progress Note Date: 12/31/20 Principal diagnosis: multiple abscesses Patient is a 35 yo CM with a hx of Hep C, MRSA, and prior back surgery who presented to the ED with complaints of worsening skin lesions. He was seen in the emergency department on 12/29 on prescribed bactrim and Hibclens. He did take the bactrim but felt that the abscess are getting worse and more painful. He returned to the emergency department. Vital signs were within normal limits and labatory analysis demonstrated evltaed LFT. He was started on vanco and arrangements were made of admission. He underwent an orbital CT which showed a 1.3 x 0.8 cm collection of fluid in the infraorbital aspect of the right orbit. Infectious disease, general surgery, and Ophtho were consulted for possible drainage. Patient seen and examined at bedside. He complains of pain everywhere and states that morphine doesn't work. He refuses to place a warm compress on his face because it hurt. We discussed that if he does not dissipate with this he will require a drainage of his abscess. He states that starting [address] Dubon for it. I explained to him that these would be done at bedside likely and not in the operating room. He denies any nausea or vomiting. He just wants to be left alone. General: non toxic, no distress, appears at stated age, disheveled, malodorous Derm: Multiple lesions with no areas of fluctuance but hard raised areas with some necrotic centers and yellow purulent discoloration the largest being on his right infraorbital ridge, an additional 1 on his midline abdominal wall, a 2 cm one on his right lower back, a small 0.5 cm one on his left buttock, and 3 lesions in his left axilla, additional lesion in the hairline. warm, dry Head: atraumatic, normocephalic, symmetric Eyes: EOMI, no lid lag, anicteric sclera Mouth: no lip lesion, mucus membranes moist Cardiovascular: S1S2 reg, no murmur, positive posterior tibial pulse bilateral, Lungs: CTA bilateral, no rhonchi, no rales , no accessory muscle use Abdominal: soft, nontender to palpation, no guarding, no appreciable organ omegaly Ext: no gross muscle atrophy, no edema, no contractures Neuro: CN II-XI grossly intact, no focal neuro deficits Psych: Alert, oriented, angry and yelling Multiple abscesses consistent with MRSA versus recluse bites -Continue with vancomycin -Patient refused to see ID -Warm compresses to eye - Gen. surgery and ophthalmology consult - blood cultures pending and if positive echocardiogram -Pain control Intravenous drug use -Cessation -Catapres, Zofran, Toradol for withdrawals Tobacco use -Cessation -Nicotine replacement Transaminitis, likely secondary to hepatitis C -Patient has never received treatment -Ideally Check liver ultrasound in AM, patient refused to be made NPO on admis dee for this test. DVT prophylaxis: SCDs Discussed with: Patient, nursing Anticipated discharge date: 3-[address]: Home Objective - Vital Signs Vital signs: Vital Signs Temp 98.3 F 12/31/20 12:38 Pulse 69 12/31/20 12:38 Resp 18 12/31/20 12:38 BP 135/80 12/31/20 12:38 Pulse Ox 97 12/31/20 12:38 Intake & Output 12/30/20 12/31/20 12/31/20 18:59 06:59 18:59 Intake Total 550 Output Total 2100 400 Balance -1550 -400 Weight 74.843 kg 74.843 kg Intake: Intake, IV Titration 550 Amount Sodium Chloride 0.9% 1, 300 000 ml @ 75 mls/hr IV . [id number] [facility] Rx#:[id number] Vancomycin 1,250 mg In 250 Sodium Chloride 0.9% 250 ml @ 125 mls/hr IVPB Q8H [facility] Rx#:[id number] Output: Urine 2100 400 Other: Voiding Method Toilet Urinal - Labs CBC & Chem 7: 12/31/20 06:24 12/31/20 06:24 Labs: Abnormal Lab Results - Last 24 Hours (Table) 12/31/20 Range/Units 06:24 BUN 8 L (9-20) mg/dL Creatinine 0.57 L (0.66-1.25) mg/dL Glucose 113 H (74-99) mg/dL Microbiology - Last 24 Hours (Table) 12/30/20 11:20 Blood Culture - Preliminary Blood No Growth after 24 hours 12/30/20 11:20 Blood Culture - Preliminary Blood No Growth after 24 hours
[2020-12-31] MEDS: VANCOMYCIN 1,500 MG in SODIUM CHLORIDE 0.9% 250 ML IVPB SCH (21:56)
[2021-01-01] MEDS: VANCOMYCIN 1,500 MG in SODIUM CHLORIDE 0.9% 250 ML IVPB SCH ×3 (05:51→21:44)
[2021-01-01 06:28] LABS: ALT 325 U/L (4-49); AST 193 U/L (17-59); African American GFR (CKD) >90 (>60 ml/min/1.73 sqM); Albumin 3.9 g/dL (3.5-5.0); Alkaline Phosphatase 142 U/L (38-126); Anion Gap 8 mmol/L; Blood Urea Nitrogen 9 mg/dL (9-20); Calcium 9.2 mg/dL (8.4-10.2); Carbon Dioxide 24 mmol/L (22-30); Chloride 101 mmol/L (98-107); Globulin 3.8 g/dL; Glucose 117 mg/dL (74-99); Non-African American GFR(CKD) >90 (>60 ml/min/1.73 sqM); Potassium 4.1 mmol/L (3.5-5.1); Sodium 133 mmol/L (137-145); Total Bilirubin 0.5 mg/dL (0.2-1.3); Total Protein 7.7 g/dL (6.3-8.2)
[2021-01-01 06:44] LABS: HCT 44.4 % (39.0-53.0); HGB 15.2 gm/dL (13.0-17.5); MCH 32.3 pg (25.0-35.0); MCHC 34.3 g/dL (31.0-37.0); MCV 94.3 fL (80.0-100.0); Mean Platelet Volume 6.6; Platelet Count 260 k/uL (150-450); RBC 4.71 m/uL (4.30-5.90); RDW 14.6 % (11.5-15.5); WBC 7.5 k/uL (3.8-10.6)
[2021-01-01] MEDS: KETOROLAC 15 MG/ML 1 ML VIAL IVP PRN ×2 (07:06→15:53)
[2021-01-01] MEDS: NICOTINE 14MG/24HR PATCH TRANSDERM SCH (07:07)
--- NOTE | 2021-01-01 08:29 | P.GSCN ---
History of Present Illness Consult date: 01/01/21 Reason for Consult: Abscess History of present illness: 35-year-old male with history of MRSA, hepatitis C, heroin abuse presents to the ER complaining of multiple skin abscesses. The areas that he was complaining most about were left armpit and right periorbital location. Patient has been started on antibiotics per infectious disease. We are consulted for possible incision and drainage. Review of Systems The patient denies any acute changes in vision or hearing, no dysphagia or odynophagia, no chest pain or shortness of breath, no dysuria or hematuria, no headache, no runny nose, no rectal bleeding or melena, no unexplained weight loss Past Medical History Past Medical History: No Reported History Additional Past Medical History / Comment(s): hep c, epidural abscess, IV drug use History of Any Multi-Drug Resistant Organisms: MRSA Year Discovered:: 2020 MDRO Source:: pt reports has had MRSA "in a couple spots" Past Surgical History: Back Surgery Additional Past Surgical History / Comment(s): epidural abscess drainage Past Anesthesia/Blood Transfusion Reactions: No Reported Reaction Past Psychological History: No Psychological Hx Reported Smoking Status: Current every day smoker Past Alcohol Use History: Occasional Past Drug Use History: Heroin, IV Drug Use, Marijuana - Past Family History Father Additional Family Medical History / Comment(s): no heart disease mother History Unknown: Yes Medications and Allergies Home Medications Medication Instructions Recorded Confirmed Type Chlorhexidine Gluconate [Hibiclens] 1 applic TOPICAL DAILY #120 ml 12/29/20 12/30/20 Rx Sulfamethox-Tmp 800-160Mg [Bactrim 2 tab PO Q12HR 12/30/20 12/30/20 History Ds] Allergies Allergy/AdvReac Type Severity Reaction Status Date / Time No Known Allergies Allergy Verified 12/30/20 11:13 Surgical - Exam Vital Signs Temp Pulse Resp BP Pulse Ox 97.8 F 81 18 116/65 98 12/30/20 09:59 12/30/20 09:59 12/30/20 09:59 12/30/20 09:59 12/30/20 09:59 Physical exam: General: Well-developed, well-nourished HEENT: Normocephalic, sclerae nonicteric Abdomen: Nontender, nondistended Extremities: No edema Neuro: Alert and oriented Patient with multiple small superficial areas of erythema and induration, most of these areas have crusty scab overlying them, only area that fluctuant is left axilla where there is a 1.5 cm boil however this is draining through 2 separate skin openings a small amount of purulent fluid. Patient states the most sore area is in the right periorbital location. In that location the erythema is approximately 2-3 cm in diameter the central area of induration measuring 1.5 cm, no definite fluctuance Results - Labs 01/01/21 05:31 01/01/21 05:31 Abnormal Lab Results - Last 24 Hours (Table) 01/01/21 Range/Units 05:31 Sodium 133 L (137-145) mmol/L Creatinine 0.55 L (0.66-1.25) mg/dL Glucose 117 H (74-99) mg/dL AST 193 H (17-59) U/L ALT 325 H (4-49) U/L Alkaline Phosphatase 142 H (38-126) U/L Microbiology - Last 24 Hours (Table) 12/30/20 11:20 Blood Culture - Preliminary Blood No Growth after 24 hours 12/30/20 11:20 Blood Culture - Preliminary Blood No Growth after 24 hours Diabetes panel 01/01/21 Range/Units 05:31 Sodium 133 L (137-145) mmol/L Potassium 4.1 (3.5-5.1) mmol/L Chloride 101 (98-107) mmol/L Carbon Dioxide 24 (22-30) mmol/L BUN 9 (9-20) mg/dL Creatinine 0.55 L (0.66-1.25) mg/dL Glucose 117 H (74-99) mg/dL Calcium 9.2 (8.4-10.2) mg/dL AST 193 H (17-59) U/L ALT 325 H (4-49) U/L Alkaline Phosphatase 142 H (38-126) U/L Total Protein 7.7 (6.3-8.2) g/dL Albumin 3.9 (3.5-5.0) g/dL Calcium panel 01/01/21 Range/Units 05:31 Calcium 9.2 (8.4-10.2) mg/dL Albumin 3.9 (3.5-5.0) g/dL Pituitary panel 01/01/21 Range/Units 05:31 Sodium 133 L (137-145) mmol/L Potassium 4.1 (3.5-5.1) mmol/L Chloride 101 (98-107) mmol/L Carbon Dioxide 24 (22-30) mmol/L BUN 9 (9-20) mg/dL Creatinine 0.55 L (0.66-1.25) mg/dL Glucose 117 H (74-99) mg/dL Calcium 9.2 (8.4-10.2) mg/dL Adrenal panel 01/01/21 Range/Units 05:31 Sodium 133 L (137-145) mmol/L Potassium 4.1 (3.5-5.1) mmol/L Chloride 101 (98-107) mmol/L Carbon Dioxide 24 (22-30) mmol/L BUN 9 (9-20) mg/dL Creatinine 0.55 L (0.66-1.25) mg/dL Glucose 117 H (74-99) mg/dL Calcium 9.2 (8.4-10.2) mg/dL Total Bilirubin 0.5 (0.2-1.3) mg/dL AST 193 H (17-59) U/L ALT 325 H (4-49) U/L Alkaline Phosphatase 142 H (38-126) U/L Total Protein 7.7 (6.3-8.2) g/dL Albumin 3.9 (3.5-5.0) g/dL Assessment and Plan (1) Abscess Narrative/Plan: 35-year-old male with multiple small boils that appear to improve since yesterday. Most of these are draining spontaneously. Offered bedside incision and drainage. Alternative would be soaking in the shower and applying some pressure to the small axillary abscess site. Patient would like to try that first. Continue IV antibiotics. Will follow. Current Visit: Yes Status: Acute Code(s): L02.91 - CUTANEOUS ABSCESS, UNSPECIFIED SNOMED Code(s): 635911409
[2021-01-01] MEDS: MORPHINE SULFATE 4 MG/ML SYRINGE IV PRN ×3 (09:14→18:08)
--- NOTE | 2021-01-01 09:25 | P.PN ---
Subjective Progress Note Date: 01/01/21 Principal diagnosis: multiple abscesses Patient is a 35 yo CM with a hx of Hep C, MRSA, and prior back surgery who presented to the ED with complaints of worsening skin lesions. He was seen in the emergency department on 12/29 on prescribed bactrim and Hibclens. He did take the bactrim but felt that the abscess are getting worse and more painful. He returned to the emergency department. Vital signs were within normal limits and labatory analysis demonstrated evltaed LFT. He was started on vanco and arrangements were made of admission. He underwent an orbital CT which showed a 1.3 x 0.8 cm collection of fluid in the infraorbital aspect of the right orbit. Infectious disease, general surgery, and Ophtho were consulted for possible drainage. Patient seen and examined at bedside. The wound near his right eye started to drain after he squeezed the wound. He did take a shower. He complains of pain every where, no nausea, no shortness of breath. General: non toxic, no distress, appears at stated age, disheveled, malodorous Derm: Multiple lesions with necrotic centers and yellow purulent discoloration the largest being on his right infraorbital ridge which is open but not drainage, an additional 1 on his midline abdominal wall, a 2 cm one on his right lower back that is now beginning to unroof- no need for drainage, a small 0.5 cm one on his left buttock,3 lesions in his left axilla one large with fluctance at 4 o'clock, additional lesion in the hairline. warm, dry Head: atraumatic, normocephalic, symmetric Eyes: EOMI, no lid lag, anicteric sclera Mouth: no lip lesion, mucus membranes moist Cardiovascular: S1S2 reg, no murmur, positive posterior tibial pulse bilateral, Lungs: CTA bilateral, no rhonchi, no rales , no accessory muscle use Abdominal: soft, nontender to palpation, no guarding, no appreciable organomegaly Ext: no gross muscle atrophy, no edema, no contractures Neuro: CN II-XI grossly intact, no focal neuro deficits Psych: Alert, oriented, angry and yelling Abscess Drainage: 1 cm diameter abscess on right infraorbital ridge was open, not draining as there was thick caecaous pus in the cavity, flushed with saline and removed with q-tip and 4X4 with cavity left open. Nursing will pack with aquacel AG rope Left axilla abscess with fluctuance- drained with 25 gauge needle 2 holes were created for drainage, copious amounts of thin purulent drainage was obtained. Multiple abscesses consistent with MRSA versus recluse bites -Continue with vancomycin -Patient refused to see ID -Warm compresses to eye - Gen. surgery and ophthalmology consult - blood cultures pending and if positive echocardiogram -Pain control Intravenous drug use -Cessation -Catapres, Zofran, Toradol for withdrawals Tobacco use -Cessation -Nicotine replacement Transaminitis, likely secondary to hepatitis C -Patient has never received treatment -Ideally Check liver ultrasound in AM, patient refused to be made NPO on admission for this test. DVT prophylaxis: SCDs Discussed with: Patient, nursing Anticipated discharge date: 3-[address]: Home Objective - Vital Signs Vital signs: Vital Signs Temp 98.5 F 01/01/21 02:00 Pulse 65 01/01/21 02:00 Resp 16 01/01/21 02:00 BP 128/79 01/01/21 02:00 Pulse Ox 97 01/01/21 02:00 Intake & Output 12/31/20 01/01/21 01/01/21 18:59 06:59 18:59 Intake Total 3480 Output Total 775 400 Balance 2705 -400 Intake: Intake, IV Titration 900 Amount Sodium Chloride 0.9% 1, 650 000 ml @ 75 mls/hr IV . [id number] [facility] Rx#:[id number] Vancomycin 1,250 mg In 250 Sodium Chloride 0.9% 250 ml @ 125 mls/hr IVPB Q8H [facility] Rx#:[id number] Oral 2580 Output: Urine 775 400 Other: Voiding Method Toilet Toilet Toilet Urinal Urinal Urinal # Voids 4 - Labs CBC & Chem 7: 01/01/21 05:31 01/01/21 05:31 Labs: Abnormal Lab Results - Last 24 Hours (Table) 01/01/21 Range/Units 05:31 Sodium 133 L (137-145) mmol/L Creatinine 0.55 L (0.66-1.25) mg/dL Glucose 117 H (74-99) mg/dL AST 193 H (17-59) U/L ALT 325 H (4-49) U/L Alkaline Phosphatase 142 H (38-126) U/L Microbiology - Last 24 Hours (Table) 12/30/20 11:20 Blood Culture - Preliminary Blood No Growth after 24 hours 12/30/20 11:20 Blood Culture - Preliminary Blood No Growth after 24 hours
[2021-01-01] MEDS: cloNIDine HCL 0.1 MG TAB PO PRN (12:55)
[2021-01-01] MEDS: SODIUM CHLORIDE 0.9% 1,000 ML IV SCH (17:13)
[2021-01-02] MEDS: MORPHINE SULFATE 4 MG/ML SYRINGE IV PRN ×2 (02:20→09:28)
[2021-01-02] MEDS: VANCOMYCIN 1,500 MG in SODIUM CHLORIDE 0.9% 250 ML IVPB SCH (05:42)
[2021-01-02 06:16] LABS: African American GFR (CKD) >90 (>60 ml/min/1.73 sqM); Non-African American GFR(CKD) >90 (>60 ml/min/1.73 sqM)
[2021-01-02] MEDS: NICOTINE 14MG/24HR PATCH TRANSDERM SCH (08:33)
--- NOTE | 2021-01-02 10:02 | P.PN ---
<Haydee Vides - Last Filed: 01/02/21 09:56> Subjective Progress Note Date: 01/02/21 CHIEF COMPLAINT: Abscess HISTORY OF PRESENT ILLNESS: Patient has multiple areas of abscesses. History of MRSA, here on drug abuse and hepatitis C. They are draining. He is on antibiotics per ID. Afebrile. WBC 7.5 PHYSICAL EXAM: VITAL SIGNS: Reviewed. GENERAL: Well-developed in no acute distress. HEENT: No sclera icterus. Extraocular movements grossly intact. Moist buccal mucosa. Head is atraumatic, normocephalic. ABDOMEN: Soft. Nondistended. Nontender. NEUROLOGIC: Alert and oriented. Cranial nerves II through XII grossly intact. Skin: Left axilla boil with drainage. Decreased erythema. Right periorbital boil bandaged. ASSESSMENT: 1. Multiple areas of abscesses including left axilla and right periorbital area PLAN: -No surgical intervention planned -Most of the abscesses are draining spontaneously. -Continue antibiotics per ID -Recommend soaking in the shower and applying pressure to the abscess sites -Surgical service will sign off. Please call with any questions or concerns. Physician Consumer Marketing Manager note has been reviewed by physician. Signing provider agrees with the documented findings, assessment, and plan of care. Objective - Vital Signs Vital signs: Vital Signs Temp 98.1 F 01/02/21 04:21 Pulse 60 01/02/21 04:21 Resp 18 01/02/21 04:21 BP 130/71 01/02/21 04:21 Pulse Ox 100 01/02/21 04:21 Intake & Output 01/01/21 01/02/21 01/02/21 18:59 06:59 18:59 Intake Total 2500 1400 Output Total 1 350 Balance 2499 1050 Intake: Intake, IV Titration 250 1400 Amount Sodium Chloride 0.9% 1, 900 000 ml @ 75 mls/hr IV . [id number] [facility] Rx#:[id number] Vancomycin 1,500 mg In 250 500 Sodium Chloride 0.9% 250 ml @ 125 mls/hr IVPB Q8H [facility] Rx#:[id number] Oral 2250 Output: Urine 350 Stool 1 Other: Voiding Method Toilet Toilet Urinal Urinal # Voids 2 - Labs CBC & Chem 7: 01/01/21 05:31 01/02/21 05:12 Labs: Abnormal Lab Results - Last 24 Hours (Table) 01/02/21 Range/Units 05:12 Creatinine 0.57 L (0.66-1.25) mg/dL Microbiology - Last 24 Hours (Table) 12/30/20 11:20 Blood Culture - Preliminary Blood No Growth after 48 hours 12/30/20 11:20 Blood Culture - Preliminary Blood No Growth after 48 hours <Haja Dubon - Last Filed: 01/02/21 12:02> Subjective As above. Patient doing better at this time. Areas of induration and synovitis decreasing in size. No significant drainable abscess identified currently. We'll sign off. Call if needed. Objective - Vital Signs Vital signs: Vital Signs Temp 98.1 F 01/02/21 04:21 Pulse 60 01/02/21 04:21 Resp 18 01/02/21 04:21 BP 130/71 01/02/21 04:21 Pulse Ox 100 01/02/21 04:21 Intake & Output 01/01/21 01/02/21 01/02/21 18:59 06:59 18:59 Intake Total 2500 1400 Output Total 1 350 Balance 2499 1050 Intake: Intake, IV Titration 250 1400 Amount Sodium Chloride 0.9% 1, 900 000 ml @ 75 mls/hr IV . [id number] [facility] Rx#:[id number] Vancomycin 1,500 mg In 250 500 Sodium Chloride 0.9% 250 ml @ 125 mls/hr IVPB Q8H [facility] Rx#:[id number] Oral 2250 Output: Urine 350 Stool 1 Other: Voiding Method Toilet Toilet Urinal Urinal # Voids 2 - Labs CBC & Chem 7: 01/01/21 05:31 01/02/21 05:12 Labs: Abnormal Lab Results - Last 24 Hours (Table) 01/02/21 Range/Units 05:12 Creatinine 0.57 L (0.66-1.25) mg/dL Microbiology - Last 24 Hours (Table) 12/30/20 11:20 Blood Culture - Preliminary Blood No Growth after 48 hours 12/30/20 11:20 Blood Culture - Preliminary Blood No Growth after 48 hours Assessment and Plan (1) Abscess Current Visit: Yes Status: Acute Code(s): L02.91 - CUTANEOUS ABSCESS, UNSPECIFIED SNOMED Code(s): 366878481
[2021-01-02 12:12] VITALS: BP 143/76; PULSE 77; RESP 19; TEMP 98.3
[2021-01-02] MEDS ORDERED: VANCOMYCIN TROUGH DUE 1 EACH MISC MISCELLANE ONE (13:00)
[2021-01-02] MEDS: SODIUM CHLORIDE 0.9% 1,000 ML IV SCH (13:22)
--- NOTE | 2021-01-02 15:21 | P.DS ---
Providers Date of admission: 12/30/20 10:48 Expected date of discharge: 01/02/21 Attending physician: Dannielle Gutierrez DO Consults: 12/30/20 16:26 Consult Physician Routine Consulting Provider: Spike Lomas Consult Reason/Comments: multiple abscess, hx of MRSA and epidural abscess Do you want consulting provider notified?: Yes 12/31/20 12:27 Consult Physician Routine Consulting Provider: Haja Dubon Consult Reason/Comments: multiple abscess with hx if MRSA, right flank Do you want consulting provider notified?: Yes 12/31/20 12:28 Consult Physician Routine Consulting Provider: Walter Mueller Consult Reason/Comments: Right infraorbital abscess with hx of MRSA, COnjunctivitis Do you want consulting provider notified?: Yes Primary care physician: Christiano [facility] Course: Patient is a 35 yo CM with a hx of Hep C, MRSA, and prior back surgery who presented to the ED with complaints of worsening skin lesions. He was seen in the emergency department on 12/29 on prescribed bactrim and Hibclens. He did take the bactrim but felt that the abscess are getting worse and more painful. He returned to the emergency department. Vital signs were within normal limits and labatory analysis demonstrated evltaed LFT. He was started on vanco and arrangements were made of admission. He underwent an orbital CT which showed a 1.3 x 0.8 cm collection of fluid in the infraorbital aspect of the right orbit. Infectious disease, general surgery, and Ophtho were consulted for possible drainage. Multiple Superficial Abscesses Patient started on vancomycin, seen by ID but then refused to be seen by them. Gen surgery evaluated the patient, and noted that his abscesses were spontaneously draining, and no surgical intervention warranted. BCx did not grow any bacteria. Patient was discharged with an additional 7 days of bactrim and hibiclens. Pt to follow up with PCP. Intravenous drug use Tobacco use Transaminitis, likely secondary to hepatitis C -Patient has never received treatment, will require f/u with PCP for appropriate referrals. I spent 33 minutes coordinating this complex discharge. Assessment: Gen: awake, alert HEENT: normocephalic, atraumatic, good hearing acuity, moist mucous membranes Resp: good air exchange, breathing comfortably with no accessory muscle use CVS: good distal perfusion x 4, GI: soft, NTTP, ND : no SPT, no CVAT, ann catheter not present MSK: no pitting edema, no clubbing Neuro: non-focal, moving all extremities Psych: cooperative, euthymic mood Patient Condition at Discharge: Good Plan - Discharge Summary Discharge Rx Participant: No New Discharge Prescriptions: Continue Chlorhexidine Gluconate [Hibiclens] 1 applic TOPICAL DAILY #120 ml Changed Sulfamethox-Tmp 800-160Mg [Bactrim DS 800-160 mg] 1 tab PO Q12HR #14 Discharge Medication List Chlorhexidine Gluconate [Hibiclens] 1 applic TOPICAL DAILY #120 ml 12/29/20 [Rx] Sulfamethox-Tmp 800-160Mg [Bactrim DS 800-160 mg] 1 tab PO Q12HR #14 01/02/21 [Rx] Follow up Appointment(s)/Referral(s): Christiano Alfnoso MD [Primary Care Provider] - 1-2 days (patient to make follow up appt) Patient Instructions/Handouts: How to Stop Smoking (DC), Cellulitis (DC), Abscess (GEN) Discharge Disposition: HOME SELF-CARE
== END 2021-01-02 13:45 | disposition home or self-care (01) | DRG 442 ==
LOC: EC 09:52 → 5NMEDONC 10:48
PROVIDERS: ADMIT Internal Medicine; ATTEND Internal Medicine
DX: B18.2 Chronic viral hepatitis C (principal); L02.01 Cutaneous abscess of face; L02.212 Cutaneous abscess of back [any part, except buttock and flank]; L02.412 Cutaneous abscess of left axilla; L03.211 Cellulitis of face; H05.011 Cellulitis of right orbit; R74.01 Elevation of levels of liver transaminase levels; F11.90 Opioid use, unspecified, uncomplicated; B95.62 Methicillin resistant Staphylococcus aureus infection as the cause of diseases classified elsewhere; F17.210 Nicotine dependence, cigarettes, uncomplicated; M65.9 Synovitis and tenosynovitis, unspecified; Z86.14 Personal history of Methicillin resistant Staphylococcus aureus infection; Z59.0 Homelessness; Z71.51 Drug abuse counseling and surveillance of drug abuser
CPT/HCPCS: 36415; 70480; 80048; 80053; 80202; 82565; 83605; 85025; 85027; 87040; 96365; 99284